=== PATIENT | male | born 1950 | race American Indian/Alaskan Native ===

== ENCOUNTER 2018-01-14 10:10 | Day surgery (SDC) | payer OTHER ==
[2018-01-14] MEDS ORDERED: Propofol 10 mg/ml Inj (20 ML) ONE (14:17)
[2018-01-14 15:11] VITALS: RESP 18; TEMP 97.1; O2SAT 99
[2018-01-14 15:50] VITALS: BP 141/69; PULSE 62
== END 2018-01-14 15:48 | disposition home or self-care (01) ==
LOC: C.ENDO 10:10
PROVIDERS: ATTEND Internal Medicine Gastroenterology
DX: K63.89 Other specified diseases of intestine (principal); K63.5 Polyp of colon; D50.9 Iron deficiency anemia, unspecified; K64.8 Other hemorrhoids; K29.50 Unspecified chronic gastritis without bleeding; K44.9 Diaphragmatic hernia without obstruction or gangrene; N40.0 Benign prostatic hyperplasia without lower urinary tract symptoms; I12.9 Hypertensive chronic kidney disease with stage 1 through stage 4 chronic kidney disease, or unspecified chronic kidney disease; N18.9 Chronic kidney disease, unspecified; E11.22 Type 2 diabetes mellitus with diabetic chronic kidney disease; J45.909 Unspecified asthma, uncomplicated; F17.210 Nicotine dependence, cigarettes, uncomplicated
CPT/HCPCS: 43239; 45380; 82948; 88305; J2001; J2704; J3010